=== PATIENT | female | born 1975 | race Caucasian/White ===

== ENCOUNTER 2016-06-12 22:40 | Emergency (ER) | payer OTHER ==
[~2016-06-12] VITALS: Ht 167.6 cm; Wt 148.8 kg
--- NOTE | ~2016-06-12 | EKG ---
[place] [address] [facility] [employer] [place] [address] ELECTROCARDIOGRAM REPORT Name: ASHA GOLDSMITH Jessy Room [facility]: [facility] [id number] Admission: 06/12/16 Attend Phys: Discharge: 06/13/16 Date of : 79 Report #: [id number] THIS REPORT FOR: //name// [facility] ED Test Date: 2016-06-13 Test Time: 02:34:02 Pat Name: ASHA GOLDSMITH Department: Room: Gender: F Shipping Receiving Manager: DEVANTE : 1975 Requested By: Melonie Abdul Order Number: [id number] MD: Juan Diego Jimenez Measurements Intervals [place] Rate: 69 P: 23 AR: 217 QRS: 3 QRSD: 95 T: -12 QT: 436 QTc: 467 Interpretive Statements Sinus rhythm Prolonged AR interval Poor R wave progression Borderline repolarization abnormality No previous ECG available for comparison Electronically Signed On 06-13-2016 9:35:52 MEDICAL INSURANCE CLAIMS SPECIALIST by Juan Diego Jimenez [email or web address] <ELECTRONICALLY SIGNED> By: Juan Diego Jimenez MD, [facility] 06/13/16 [id number] [id number] Juan Diego Jimenez MD, FACC /EPI
--- NOTE | ~2016-06-12 | EKG ---
[address] [place] [address] ELECTROCARDIOGRAM REPORT Name: ASHA GOLDSMITH Room #: [facility]#: [id number] Admission: 06/12/16 Attend Phys: Discharge: 06/13/16 Date of : [birth year] Report #: [id number] THIS REPORT FOR: //name// [facility] ED Test Date: 2016-06-12 Test Time: 22:46:54 Pat Name: ASHA GOLDSMITH Department: Room: Gender: F Support Team Assoc: CECE : 1975 Requested By: Melonie Abdul Order Number: [id number] MD: Juan Diego Jimenez Measurements Intervals [place] Rate: 113 P: 30 [place]: 185 QRS: 1 QRSD: 97 T: -3 QT: 338 QTc: 464 Interpretive Statements Sinus tachycardia Anteroseptal infarct, old No previous ECG available for comparison Electronically Signed On 06-13-2016 9:31:56 DEBT MANAGEMENT COUNSELOR by Juan Diego Jimenez [email or web address] <ELECTRONICALLY SIGNED> By: Juan Diego Jimenez MD, [facility] 06/13/16 0931 [id number] Juan Diego Jmienez MD, FACC /EPI
[~2016-06-12 22:40] MED LIST: CIPROFLOXACIN500 M1 PO; FLAGYL500 MG PO; NOHOMEMEDICATIONS; NORCO 5-325 TA1 EACH PO; PENICILLIN VK500 M1 PO; PERCOCET 5-3251 EACH PO; PERCOCET 7.5-51 EACH PO
[2016-06-13] MEDS ORDERED: LISINOPRIL10 MG PO ×2 (00:33→02:53)
[2016-06-13] MEDS ORDERED: AMLODIPINE BESY10 MG PO (00:33)
[2016-06-13] MEDS ORDERED: BUMEX (00:35)
[2016-06-13 00:52] LABS: ABSOLUTE NEUTROPHILS 6.6 thou/uL (1.4-8.2); BASOPHILS 1.1 % (0.0-2.0); EOSINOPHILS 1.2 % (0.0-3.0); HEMATOCRIT 44.1 % (37.0-47.0); LYMPHOCYTES 17.7 % (24.0-44.0); MCH 24.3 pg (26.0-34.0); MCHC 31.8 % (28.0-37.0); MCV 76.6 fL (80.0-100.0); MONOCYTES 9.9 % (1.0-8.0); PLATELET COUNT 402 thou/uL (150-400); POLYS 70.1 % (36.0-66.0); RBC 5.76 mil/uL (4.20-5.00); RDW 15.4 % (10.5-14.5); WBC 9.4 thou/uL (4.0-11.0)
[2016-06-13 00:53] LABS: MANUAL DIFF NO
[2016-06-13 01:03] LABS: AMP/METHAMP Negative (Negative); BARBITURATES Negative (Negative); BENZODIAZEPINES Negative (Negative); COCAINE Negative (Negative); METHADONE Negative (Negative); OPIATES Negative (Negative); PCP Negative (Negative); THC Negative (Negative)
[2016-06-13 01:05] LABS: APTT 29.4 Seconds (24.5-32.8); PROTIME 10.7 Seconds (9.3-11.4)
[2016-06-13 01:12] LABS: ALBUMIN 3.9 g/dL (3.4-5.0); ALKALINE PHOSPHATASE 139 U/L (46-116); ANION GAP 8 mmol/L (7-16); BUN 8 mg/dL (7-18); CALCIUM 9.6 mg/dL (8.5-10.1); CHLORIDE 102 mmol/L (98-107); CO2 28 mmol/L (21-32); CREATININE 1.1 mg/dL (0.6-1.3); NT-PRO BRAIN NAT PEPTIDE 10 pg/mL (<300); POTASSIUM 3.7 mmol/L (3.5-5.1); SGOT 22 U/L (15-37); SGPT 34 U/L (30-65); SODIUM 138 mmol/L (136-145); TOTAL BILIRUBIN 0.2 mg/dL (<0.1-1.0); TOTAL PROTEIN 8.3 g/dL (6.4-8.2); TROPONIN-I < 0.04 ng/mL (<0.04-0.07)
[2016-06-13 01:27] LABS: GLUCOSE 81 mg/dL (70-99)
[2016-06-13] MEDS ORDERED: NORVASC2.5 MG PO (02:53)
[2016-06-13 03:22] VITALS: BP 158/100
== END 2016-06-13 03:23 | disposition home or self-care (01) ==
LOC: ER 22:40
PROVIDERS: Emergency Medicine
DX: I10 Essential (primary) hypertension (principal); R00.2 Palpitations; Z91.013 Allergy to seafood; F17.200 Nicotine dependence, unspecified, uncomplicated; R07.9 Chest pain, unspecified